=== PATIENT | female | born 1940 | race Caucasian/White ===

== ENCOUNTER 2020-09-28 10:39 | Observation (INO) | payer MEDICARE, OTHER ==
[~2020-09-28] VITALS: Ht 165.1 cm; Wt 74.5 kg
--- NOTE | 2020-09-28 11:08 | NUR ---
ERMD AT BEDSIDE FOR EVALUATION.
[2020-09-28] MEDS ORDERED: TRAZ-175 PO (11:11)
--- NOTE | 2020-09-28 11:18 | NUR ---
PATIENT WALKED BACK FROM TRIAGE WITH CHIEF C/O CHEST PAIN. PER PATIENT CHEST PAIN HAS BEEN OCCURING OFF AND ON X2 YEARS, BUT HAS GOTTEN MORE FREQUENT IN THE LAST MONTH. PATIENT REPORTS LAST EPISODE OF CHEST PAIN TWO DAYS AGO WHICH LASTED 20 MINUTES. PAIN RADIATES TO LEFT SHOULDER AND BACK, PATIENT ALSO REPORTS SOME JAW PAIN. PATIENT DENIES SOB, DENIES N/V/D. PATIENT DOES REPORT FATIGUE. NADN, VSS, DAUGHTER AT BEDSIDE, CALL LIGHT WITHIN REACH.
[2020-09-28] MEDS ORDERED: SODIUM CHLORIDE FLUSH 10ML SYR IVF ONE (11:30)
--- NOTE | 2020-09-28 11:33 | NUR ---
20 GAUGE IV STARTED RIGHT AC, BLOOD COLLECTED AND GIVEN TO PLOW HOLDER.
[2020-09-28 11:42] LABS: BASOPHILS % (AUTO) 1 % (0-1); EOSINOPHILS % (AUTO) 2 % (1-7); LYMPHOCYTES % (AUTO) 36 % (22-44); MEAN CORPUSCULAR HEMOGLOBIN 32.2 pg (27.0-34.8); MEAN CORPUSCULAR HGB CONC 33.9 g/dL (32.4-35.8); MEAN PLATELET VOLUME 7.8 fL (7.4-10.4); MONOCYTES % (AUTO) 12 % (2-9); NEUTROPHILS % (AUTO) 49 % (42-75); PLATELET COUNT 183 x10^3/uL (130-400); RED BLOOD COUNT 4.57 x10^6/uL (3.82-5.3)
[2020-09-28 11:43] LABS: MD NO
[2020-09-28] MEDS ORDERED: RIVA15TA PO (11:48)
[2020-09-28] MEDS ORDERED: HYDR-826 PO (11:48)
[2020-09-28] MEDS ORDERED: DILT120C64 PO (11:48)
[2020-09-28] MEDS ORDERED: OXYB10TA26 PO (11:48)
[2020-09-28] MEDS ORDERED: ERGO500017 PO (11:48)
[2020-09-28 11:56] LABS: ALBUMIN 3.9 g/dL (3.4-5.0); ANION GAP 6 mmol/L (5-15); CALCIUM 9.1 mg/dL (8.5-10.1); CHLORIDE 109 mmol/L (98-107)
[2020-09-28 12:03] LABS: CREATININE 1.14 mg/dL (0.55-1.02); TROPONIN I < 0.015 ng/mL (0.000-0.045)
--- NOTE | 2020-09-28 12:36 | NUR ---
Yuniel holt in ED - 09/28/20 at 1249 by [email or web address] ERPA AT BEDSIDE TO DISCUSS POC.
--- NOTE | 2020-09-28 13:15 | NUR ---
PROVIDER CONTRACTING CONSULTANT AT BEDSIDE FOR EKG.
--- NOTE | 2020-09-28 13:40 | NUR ---
BREAK RN: SPOKE W/GARIMA IN BLOOD BANK REGARDING PT CHOICE FOR NO BLOOD PRODUCTS. PER GARIMA, HE WILL MAKE NOTES IN THE PTS CHART IN REGARDS TO NO BLOOD PRODUCTS.
[2020-09-28] MEDS ORDERED: NITROGLYCERIN 0.4 MG BOTTLE (25 TABS) SL PRN (14:30)
[2020-09-28] MEDS ORDERED: MELATONIN 5 MG TABLET PO PRN (14:30)
[2020-09-28] MEDS ORDERED: ONDANSETRON ODT 4 MG PO PRN (14:30)
--- NOTE | 2020-09-28 14:48 | NUR ---
FOOD TRAY ORDERED.
--- NOTE | 2020-09-28 15:22 | NUR ---
PATIENT TRANSFERRED TO CARDIAC TELEMETRY IN STABLE CONDITION VIA GURNEY WITH PANTOGRAPH WATCHER AND DAUGHTER. ALL PATIENT BELONGINGS GATHERED AND TAKEN TO FLOOR WITH PATIENT.
[2020-09-28 15:50] VITALS: BP 106/63
[2020-09-28] MEDS ORDERED: ERGOCALCIFEROL 50,000 UNIT CAPSULE PO SCH (16:00)
[2020-09-28 18:54] VITALS: BP 154/73
[2020-09-28 19:32] LABS: TROPONIN I < 0.015 ng/mL (0.000-0.045)
[2020-09-28] MEDS ORDERED: TRAZODONE 100MG TABLET PO SCH (21:00)
[2020-09-29 00:59] LABS: TROPONIN I < 0.015 ng/mL (0.000-0.045)
[2020-09-29 01:16] VITALS: BP 168/90
[2020-09-29] MEDS: ACETAMINOPHEN 325 MG TABLET PO PRN ×2 (01:32→05:59)
[2020-09-29 05:18] LABS: CHOL/HDL RATIO 3.5; LDL/HDL RATIO 2.3 (0.5-3.0)
[2020-09-29] MEDS ORDERED: REGADENOSON 0.4 MG/5 ML SYRINGE ONE (08:18)
[2020-09-29 08:37] VITALS: BP 130/75
[2020-09-29] MEDS ORDERED: LIDODERM 5% PATCH TD SCH (09:00)
[2020-09-29] MEDS ORDERED: OXYBUTYNIN CHLORIDE 5 MG TABLET PO SCH (09:00)
[2020-09-29] MEDS ORDERED: DILTIAZEM 120 MG CAP.ER.24H PO SCH (09:00)
[2020-09-29] MEDS ORDERED: RIVAROXABAN 15 MG TABLET PO SCH (09:00)
[2020-09-29 13:15] VITALS: BP 122/82
[2020-09-29] MEDS ORDERED: LIDO700A20 TD (15:48)
== END 2020-09-29 16:10 | disposition home or self-care (01) ==
LOC: ED 12:42 → 5SO 14:30 → DCLOUNGE 09-29 16:05
PROVIDERS: ADMIT Internal Medicine; ATTEND Internal Medicine
DX: R07.89 Other chest pain (principal); I48.20 Chronic atrial fibrillation, unspecified; R01.1 Cardiac murmur, unspecified; I20.0 Unstable angina; I12.9 Hypertensive chronic kidney disease with stage 1 through stage 4 chronic kidney disease, or unspecified chronic kidney disease; N18.9 Chronic kidney disease, unspecified; N32.81 Overactive bladder; G89.29 Other chronic pain; M47.814 Spondylosis without myelopathy or radiculopathy, thoracic region; I27.20 Pulmonary hypertension, unspecified; D68.69 Other thrombophilia; Z79.899 Other long term (current) drug therapy; Z90.710 Acquired absence of both cervix and uterus; Z79.01 Long term (current) use of anticoagulants
CPT/HCPCS: 36415; 78452; 80048; 80061; 82040; 84484; 85025; 85379; 93005; 93017; 93306; 99284; A9502; G0378; J2785

== ENCOUNTER → 2020-11-08 | Outpatient (CLI) | payer MEDICARE ==
[~2020-11-08] MED LIST: DILT120C64 PO; ERGO500017 PO; HYDR-826 PO; LIDO700A20 TD; OXYB10TA26 PO; RIVA15TA PO; TRAZ-175 PO
== END | disposition home or self-care (01) ==
LOC: RAD 10:42
PROVIDERS: ATTEND Internal Medicine Cardiovascular Disease
DX: I27.9 Pulmonary heart disease, unspecified (principal)
CPT/HCPCS: 78582; A9539; A9540